=== PATIENT | female | born 1985 | race Caucasian/White ===

== ENCOUNTER 2024-08-21 19:42 | Emergency (ER) | payer OTHER ==
[~2024-08-21] VITALS: Ht 157.5 cm; Wt 64.2 kg
[2024-08-21 19:58] VITALS: BP 125/64; PULSE 74; RESP 16; TEMP 97.8; O2SAT 100
[2024-08-21] MEDS: TETanus/Pertussis (Acell)/Diphther VAC/PF (Tdap-Adult) 0.5ml syringe IMVAC ONE (20:39)
[2024-08-21] MEDS ORDERED: SULF1TAB49 PO (21:16)
== END 2024-08-21 21:49 | disposition home or self-care (01) ==
LOC: ER 19:44
DX: S81.011A Laceration without foreign body, right knee, initial encounter (principal); V00.321A Fall from snow-skis, initial encounter; Y93.23 Activity, snow (alpine) (downhill) skiing, snowboarding, sledding, tobogganing and snow tubing; Y92.89 Other specified places as the place of occurrence of the external cause; Y99.8 Other external cause status
CPT/HCPCS: 12001; 90471; 90715; 99283; J7030; A6258; A6402; A6449

== ENCOUNTER 2024-08-29 09:24 | Emergency (ER) | payer OTHER ==
[~2024-08-29] VITALS: Ht 157.5 cm; Wt 62.3 kg
[~2024-08-29 09:24] MED LIST: SULF1TAB49 PO
[2024-08-29 09:26] VITALS: BP 100/58; PULSE 94; RESP 16; TEMP 99.5; O2SAT 98
[2024-08-29] MEDS: methylPREDNISolone sod succ 125mg/2ml vial IM ONE (09:49)
[2024-08-29] MEDS ORDERED: METH4TAB81 PO (10:24)
[2024-08-29] MEDS ORDERED: NYST1000 PO (10:48)
[2024-08-29] MEDS ORDERED: HYDR25CA PO (10:48)
[2024-08-29] MEDS: hydrOXYzine 25 MG tablet PO ONE (11:05)
== END 2024-08-29 11:14 | disposition home or self-care (01) ==
LOC: ER 09:25
DX: L27.0 Generalized skin eruption due to drugs and medicaments taken internally (principal); B37.0 Candidal stomatitis; Z88.2 Allergy status to sulfonamides; Z79.52 Long term (current) use of systemic steroids
CPT/HCPCS: 96372; 99283; J2919; Q0177